=== PATIENT | male | born 1950 | race Caucasian/White ===

== ENCOUNTER 2016-07-12 14:55 | Outpatient (RCR) | payer BC ==
--- OUTSIDE RECORDS SUMMARY | 2016-05-30 15:33 | XMS REPORT | Continuity of Care Document ---
Author Author [facility] Organization [facility] Address Unknown Phone Unavailable Care Team Providers Care Check Airman Name Role Phone THANG MOMIN MD PCP Insurance Providers Payer Name Policy Number Subscriber Name Relationship Rust [id number] Maida Galindo 01 Advance Directives Directive Response Recorded Date/Time Advance Directives No 02/17/16 2:15pm Health Care Power of Long Haul Truck Driver No 02/17/16 2:15pm Organ Donor No 02/17/16 2:15pm Resuscitation Status Full Code 02/17/16 2:15pm Problems No problem information available. Medications Current Home Medications Medication Dose Units Route Directions Days/Qty Instructions Start Date Lisinopril 5 Mg 5 Mg Oral Daily 11/29/12 Vitamin E (Dl,Tocopheryl Acet) 1,000 Unit 1,000 Unit Oral Daily 12/08 Loratadine 10 Mg 10 Mg Oral Daily 11/29/12 Multivitamin 1 Each 1 Tab Oral Daily 11/29/12 Colchicine 0.6 Mg 0.6 Mg Oral Twice A Day 11/29/12 Tamsulosin Hcl 0.4 Mg 0.4 Mg Oral 30 Min After Supper 11/29/12 Past Home Medications Medication Directions Ordered Status Hyoscyamine Sulfate (Levbid) 0.375 Mg Tab.sr.12h, 0.375 Mg Oral Twice A Day 11/29/12 Discontinued Ciprofloxacin 500 Mg Tablet, 500 Mg Oral Twice A Day 11/29/12 Discontinued Ibuprofen 200 Mg Tablet, 400 Mg Oral Every Three Hours as needed 11/29/12 Discontinued Aspirin 325 Mg Tab, 325 Mg Ng Tube Once 11/29/12 Discontinued Loratadine/Pseudoephedrine Sul 1 Each Tab.sr.24h, 1 Each Oral Daily 01/02/13 Discontinued Social History Social History Problem Response Recorded Date/Time Alcohol Use Denies Use 02/17/2016 2:15pm Recreational Drug Use No 02/17/2016 2:15pm Recent Foreign Travel No 11/29/2012 1:00pm Recent Infectious Disease Exposure No 11/29/2012 1:00pm Hospitalization with Isolation Denies 01/04/2013 11:31am HIV/AIDS No 02/17/2016 2:15pm Smoking Status Current Everyday Smoker 02/17/2016 2:14pm Query Response Start Date Stop Date Smoking Status Current Everyday Smoker Hospital Discharge Instructions No hospital discharge instructions. Plan of Care Discharge Date 02/17/16 2:41pm Prescriptions See Medication Section Functional Status No functional status results. Allergies, Adverse Reactions, Alerts Allergen Type Severity Reaction Status Last Updated Penicillins ([id number]) Allergy Unknown Active 02/17/16 Immunizations Name Given Type Date of Pneumonia Vaccine 12/01/12 Historical Hepatitis A No Historical Hepatitis B No Historical Tetanus Booster (TDap) More than 5yrs Historical Vital Signs Acute Vital Signs Vital Response Date/Time Height (Feet) 5 feet 02/17/2016 2:15pm Height (Inches) 11.00 inches 02/17/2016 2:15pm Height (Calculated Centimeters) 180.262490 cm 02/17/2016 2:15pm Weight (Pounds) 160 pounds 02/17/2016 2:15pm Weight (Ounces) 0.0 oz 02/17/2016 2:15pm Weight (Calculated Grams) 99059.780 gm 02/17/2016 2:15pm Weight (Calculated Kilograms) 72.905414 kilograms 02/17/2016 2:15pm Calculated BMI 26.62 02/17/2016 2:15pm Results No known relevant diagnostic tests, laboratory data and/or discharge summary. Procedures No known history of procedures. Encounters Encounter Location Arrival/Admit Date Discharge/Depart Date Attending Provider Departed Clinic [facility] 02/17/16 2:08pm 02/17/16 2: 41pm NIRAV DOWLING MD
[~2016-07-12 14:55] MED LIST: ASP325T NG; CIPR-225 PO; COLC0.6T53 PO; CPR500T PO; HYDR-3729 PO; HYOS0.3710 PO; IBUP-30 PO; LISI5TAB PO; LORA-877 PO; LORA10TA2 PO; MULT-963 PO; TMSL.4C PO; VITA-198 PO
== END 2016-08-28 | disposition home or self-care (01) ==
LOC: ONC 14:55
PROVIDERS: ATTEND Internal Medicine Hematology & Oncology
DX: Z51.0 Encounter for antineoplastic radiation therapy (principal); C44.320 Squamous cell carcinoma of skin of unspecified parts of face
CPT/HCPCS: 77336; 77412; 99213

== ENCOUNTER → 2016-10-12 | Outpatient (CLI) | payer BC ==
--- OUTSIDE RECORDS SUMMARY | 2016-10-12 15:23 | XMS REPORT | Continuity of Care Document ---
Author Author [facility] Organization [facility] Address Unknown Phone Unavailable Care Team Providers Care History Tutor Name Role Phone THANG MOMIN MD PCP Insurance Providers Payer Name Policy Number Subscriber Name Relationship [facility] [id number] Maida Galindo 01 Advance Directives Directive Response Recorded Date/Time Advance Directives No 02/17/16 2:15pm Health Care Power of Agriculture Instructor No 02/17/16 2:15pm Organ Donor No 02/17/16 [...] Type Severity Reaction Status Last Updated Penicillins ([id number]) Allergy Unknown Active 02/17/16 Immunizations Name Given Type Date of Pneumonia Vaccine 12/01/12 Historical Hepatitis A No Historical Hepatitis B No Historical Tetanus Booster (TDap) More than 5yrs Historical Vital Signs Acute Vital Signs Vital Response Date/Time Height (Feet) 5 feet 02/17/2016 2:15pm Height (Inches) 11.00 inches 02/17/2016 2:15pm Height (Calculated Centimeters) 180.166247 cm 02/17/2016 2:15pm Weight (Pounds) 160 pounds 02/17/2016 2:15pm Weight (Ounces) 0.0 oz 02/17/2016 2:15pm Weight (Calculated Grams) 99776.780 gm 02/17/2016 2:15pm Weight (Calculated Kilograms) 72.913807 kilograms 02/17/2016 2:15pm Calculated BMI 26.62 02/17/2016 2:15pm Results No known relevant diagnostic tests, laboratory data and/or discharge summary. Procedures No known history of procedures. Encounters Encounter Location Arrival/Admit Date Discharge/Depart Date Attending Provider Departed Clinic [facility] 02/17/16 2:08pm 02/17/16 2: 41pm NIRAV DOWLING MD
== END ==
LOC: EDSTATUS 08-29 15:05 → ONC 15:16
PROVIDERS: ATTEND Internal Medicine Hematology & Oncology
DX: C44.320 Squamous cell carcinoma of skin of unspecified parts of face (principal)
CPT/HCPCS: 99213

== ENCOUNTER → 2017-01-11 | Outpatient (CLI) | payer BC | LOC: ONC 15:29 | PROVIDERS: ATTEND Radiology Radiation Oncology | DX: C44.320 Squamous cell carcinoma of skin of unspecified parts of face (principal) ==

== ENCOUNTER 2017-04-12 15:11 | Outpatient (RCR) | payer BC | END 2017-05-27 | disposition home or self-care (01) | LOC: ONC 15:11 | PROVIDERS: ATTEND Radiology Radiation Oncology | DX: C44.329 Squamous cell carcinoma of skin of other parts of face (principal) ==

== ENCOUNTER 2017-10-13 09:32 | Outpatient (RCR) | payer BC | END 2018-01-11 | disposition home or self-care (01) | LOC: ONC 09:32 | PROVIDERS: ATTEND Radiology Radiation Oncology | DX: C44.329 Squamous cell carcinoma of skin of other parts of face (principal) | CPT/HCPCS: 99213 ==

== ENCOUNTER 2018-06-12 06:40 | Outpatient (CLI) | payer MEDICARE ==
[~2018-06-12] VITALS: Ht 180.3 cm; Wt 73.0 kg
[2018-06-12] MEDS ORDERED: MULT-1056 PO (15:37)
[2018-06-12] MEDS ORDERED: CETI-343 PO (15:37)
[2018-06-12] MEDS ORDERED: PENT400T9 PO (15:37)
[2018-06-12] MEDS ORDERED: VITA-244 PO (15:37)
[2018-06-12] MEDS ORDERED: LISI-556 PO (15:37)
[2018-06-12] MEDS ORDERED: TAMS0.4C2 PO (15:37)
== END 2018-06-12 15:47 | disposition home or self-care (01) ==
LOC: PREOP 06:40
PROVIDERS: ATTEND Internal Medicine
DX: Z01.818 Encounter for other preprocedural examination (principal)

== ENCOUNTER 2018-06-15 07:38 | Day surgery (SDC) | payer MEDICARE, OTHER ==
--- NOTE | 2018-06-11 20:11 | HISTORY AND PHYSICAL ---
DATE OF SERVICE: COLONOSCOPY HISTORY AND PHYSICAL HISTORY OF PRESENT ILLNESS: The patient is a 67-year-old white male seen for yearly evaluation of hypertension. He is due for a screening colonoscopy. He reports that he has felt well and voiced no complaints. He has noted no bowel habit change, has noted no bright red blood per rectum, melena and denies abdominal pain. He remains physically active and continues to smoke a half a pack of cigarettes, which he has done so for a little over 40 years. 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 PAST MEDICAL HISTORY: Significant for hypertension and a distant past history of kidney stones requiring basketing per Dr. Pan over 5 years ago. He has no known history of vascular disease or pulmonary disease. 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 He underwent initial excision in 2016. Margins were positive. He subsequently underwent radiation therapy and there has been no evidence for recurrence. He has no other history of known malignancy. MEDICATIONS ON ADMISSION: Include lisinopril 5 mg daily and loratadine 10 mg daily that he takes for seasonal allergies. PAST SURGICAL HISTORY: Significant for the aforementioned skin excision and stone basketing. He has had no other surgeries. SOCIAL HISTORY: He has a 20 plus pack year smoking with no significant alcohol. FAMILY HISTORY: His father late in life was diagnosed with colon cancer. He is still living at the age of 95. Mother of lung cancer and was a smoker in her 70s. He has sister with diabetes in her 60s and a brother in his 60s in good health with no other known family history for colon cancer. He last underwent colonoscopy five and a half years ago at which time two small tubular adenomas were removed. PHYSICAL EXAMINATION: GENERAL: Reveals a well-appearing, normal weight white male in no acute distress. VITAL SIGNS: Weight was up three pounds from one year ago at 161.4. He is 5 feet 8 inches tall. Blood pressure is 110/70. HEENT: Unremarkable. He has a Mallampati class 2 oropharyngeal configuration. There are some post radiation changes to the right gnosticist. No evidence for cancer recurrence is noted. SKIN: No suspicious nevi are noted. NECK: Revealed no JVD, adenopathy or bruits. CHEST: Clear to auscultation. CARDIOVASCULAR: Reveals a regular rate and rhythm without murmur, S3 or S4. ABDOMEN: Soft, supple without mass, organomegaly or tenderness. RECTAL: Deferred at the time of colonoscopy. EXTREMITIES: Reveal no cyanosis, clubbing or edema. Because of the patient's smoking history, he subsequently underwent office based pulmonary function testing, which was normal. A flu shot was given. ASSESSMENT AND PLAN: 1. Hypertension, under good control. 2. Family history for colon cancer, index case being his father later in life with a past history of colon polyps. The patient is due for screening colonoscopy being set up later this month. 3. Tobaccoism. Discussed all the other potential risks. Even though the patient does not have COPD, the patient was strongly advised to quit smoking. 4. Seborrheic keratosis on his back. The patient reassured no suspicious nevi noted. We will have the patient continue to follow up for yearly skin evaluation and hypertension check. Blood test including chemistry panel, lipid panel and PSA were obtained. LDL cholesterol was mildly elevated at 157, but HDL is high, especially considering smoking status of 55. The remainder of his chemistry panel was normal and his PSA remains low at 0.81. Job ID: [id number] DocumentID: [id number] Dictated Date: 06/08/2018 10:20:11 Chipper Machine Operator Date: 06/08/2018 11:04:38 Dictated By: KADEEM LAGUNAS MD MTDD
[~2018-06-15] VITALS: Ht 180.3 cm; Wt 73.0 kg
[~2018-06-15 07:38] MED LIST changes: +CETI-343 PO; +LISI-556 PO; +MULT-1056 PO; +PENT400T9 PO; +TAMS0.4C2 PO; +VITA-244 PO
--- OUTSIDE RECORDS SUMMARY | 2018-06-15 07:43 | XMS REPORT | Continuity of Care Document ---
Author Author [facility] Organization [facility] Address Unknown Phone Unavailable Allergies Active Description Code Type Severity Reaction Onset Reported/Identified Relationship to Patient Clinical Status Yes Penicillins [id number] Drug Allergy Unknown N/A 02/17/2016 Medications There is no data. Problems Date Dx Coded Attending Type Code Diagnosis Diagnosed By 12/01/2012 Ot 562.10 DIVERTICULOSIS COLON (W/O MENT OF HEMORR 12/01/2012 Ot 564.00 UNSPEC CONSTIPATION 12/01/2012 Ot 592.1 CALCULUS OF URETER 12/01/2012 Ot 600.00 HYPERTROPHY (BENIGN) OF PROSTATE W/O URI 12/01/2012 Ot V03.82 PROPHYLACTIC VACC AGAINST STREPTOCOCCUS 01/04/2013 KADEEM LAGUNAS MD Ot 211.3 BENIGN NEOPLASM LG BOWEL 01/04/2013 KADEEM LAGUNAS MD Ot 562.10 DIVERTICULOSIS COLON (W/O MENT OF HEMORR 01/04/2013 KADEEM LAGUNAS MD Ot V16.0 FAMILY HX-GI MALIGNANCY 01/04/2013 KADEEM LAGUNAS MD Ot V76.51 SCREEN MAL NEOP-COLON 02/17/2016 KADEEM LAGUNAS MD Ot V72.84 EXAM PRE-OPERATIVE NOS 02/17/2016 THANG MOMIN MD Ot 786.2 COUGH 02/17/2016 KADEEM LAGUNAS MD Ot V72.84 EXAM PRE-OPERATIVE NOS 02/17/2016 THANG MOMIN MD Ot 786.2 COUGH 02/17/2016 NIRAV DOWLING MD Ot L98.9 DISORDER OF THE SKIN AND SUBCUTANEOUS TI 02/17/2016 NIRAV DOWLING MD Ot Z01.818 ENCOUNTER FOR OTHER PREPROCEDURAL EXAMIN 02/18/2016 NIRAV DOWLING MD Ot L98.9 DISORDER OF THE SKIN AND SUBCUTANEOUS TI 02/18/2016 NIRAV DOWLING MD Ot Z01.818 ENCOUNTER FOR OTHER PREPROCEDURAL EXAMIN 02/18/2016 KADEEM LAGUNAS MD, Ot V72.84 EXAM PRE-OPERATIVE NOS 02/18/2016 THANG MOMIN MD Ot 786.2 COUGH 02/18/2016 NIRAV DOWLING MD, Ot C44.320 SQUAMOUS CELL CARCINOMA OF SKIN OF UNSPE 02/18/2016 NIRAV DOWLING MD Ot D04.39 CARCINOMA IN SITU OF SKIN OF OTHER PARTS 02/18/2016 NIRAV DOWLING MD Ot L98.9 DISORDER OF THE SKIN AND SUBCUTANEOUS TI 02/19/2016 NIRAV DOWLING MD Ot L98.9 DISORDER OF THE SKIN AND SUBCUTANEOUS TI 02/19/2016 NIRAV DOWLING MD Ot Z01.818 ENCOUNTER FOR OTHER PREPROCEDURAL EXAMIN 04/13/2016 KADEEM LAGUNAS MD Ot V72.84 EXAM PRE-OPERATIVE NOS 04/13/2016 THANG MOMIN MD Ot 786.2 COUGH 04/19/2016 KADEEM LAGUNAS MD, Ot V72.84 EXAM PRE-OPERATIVE NOS 04/19/2016 THANG MOMIN MD Ot 786.2 COUGH 04/25/2016 BOBBY STOUT Ot C44.320 SQUAMOUS CELL CARCINOMA OF SKIN OF UNSPE 05/30/2016 BOBBY STOUT Ot C44.320 SQUAMOUS CELL CARCINOMA OF SKIN OF UNSPE 05/30/2016 BOBBY STOUT Ot Z51.0 ENCOUNTER FOR ANTINEOPLASTIC RADIATION T 05/31/2016 BOBBY STOUT Ot C44.320 SQUAMOUS CELL CARCINOMA OF SKIN OF UNSPE 07/07/2016 BOBBY STOUT Ot C44.320 SQUAMOUS CELL CARCINOMA OF SKIN OF UNSPE 08/28/2016 BOBBY STOUT Ot C44.320 SQUAMOUS CELL CARCINOMA OF SKIN OF UNSPE 08/28/2016 BOBBY STOUT Ot Z51.0 ENCOUNTER FOR ANTINEOPLASTIC RADIATION T 08/29/2016 BOBBY STOUT Ot C44.320 SQUAMOUS CELL CARCINOMA OF SKIN OF UNSPE 08/29/2016 BOBBY STOUT Ot Z51.0 ENCOUNTER FOR ANTINEOPLASTIC RADIATION T 10/12/2016 BOBBY STOUT Ot C44.320 SQUAMOUS CELL CARCINOMA OF SKIN OF UNSPE 10/12/2016 BOBBY STOUT Ot C44.320 SQUAMOUS CELL CARCINOMA OF SKIN OF UNSPE 10/12/2016 BOBBY STOUT Ot C44.320 SQUAMOUS CELL CARCINOMA OF SKIN OF UNSPE 10/26/2016 BOBBY STOUT Ot C44.320 SQUAMOUS CELL CARCINOMA OF SKIN OF UNSPE 01/12/2017 WHITNEY GUPTA MD Ot C44.320 SQUAMOUS CELL CARCINOMA OF SKIN OF UNSPE 01/15/2017 WHITNEY GUPTA MD Ot C44.320 SQUAMOUS CELL CARCINOMA OF SKIN OF UNSPE 01/15/2017 WHITNEY GUPTA MD Ot C44.320 SQUAMOUS CELL CARCINOMA OF SKIN OF UNSPE 01/15/2017 WHITNEY GUPTA MD Ot C44.320 SQUAMOUS CELL CARCINOMA OF SKIN OF UNSPE 01/25/2017 WHITNEY GUPTA MD Ot C44.320 SQUAMOUS CELL CARCINOMA OF SKIN OF UNSPE 04/13/2017 WHITNEY GUPTA MD Ot C44.320 SQUAMOUS CELL CARCINOMA OF SKIN OF UNSPE 05/27/2017 WHITNEY GUPTA MD Ot C44.329 SQUAMOUS CELL CARCINOMA OF SKIN OF OTHER 10/06/2017 BEBO SALAZAR, KADEEM Ocampo Ot V72.84 EXAM PRE-OPERATIVE NOS 10/06/2017 THANG MOMIN MD Ot 786.2 COUGH 10/06/2017 BOBBY STOUT Ot C44.320 SQUAMOUS CELL CARCINOMA OF SKIN OF UNSPE 10/06/2017 WHITNEY GUPTA MD Ot C44.320 SQUAMOUS CELL CARCINOMA OF SKIN OF UNSPE 10/06/2017 WHITNEY GUPTA MD Ot C44.329 SQUAMOUS CELL CARCINOMA OF SKIN OF OTHER 10/12/2017 BOBBY STOUT Ot C44.320 SQUAMOUS CELL CARCINOMA OF SKIN OF UNSPE 10/12/2017 WHITNEY GUPTA MD Ot C44.320 SQUAMOUS CELL CARCINOMA OF SKIN OF UNSPE 10/12/2017 WHITNEY GUPTA MD Ot C44.329 SQUAMOUS CELL CARCINOMA OF SKIN OF OTHER 10/13/2017 BOBBY STOUT Ot C44.320 SQUAMOUS CELL CARCINOMA OF SKIN OF UNSPE 10/13/2017 WHITNEY GUPTA MD Ot C44.320 SQUAMOUS CELL CARCINOMA OF SKIN OF UNSPE 10/13/2017 BOBBY STOUT Ot C44.320 SQUAMOUS CELL CARCINOMA OF SKIN OF UNSPE 10/13/2017 WHITNEY GUPTA MD Ot C44.320 SQUAMOUS CELL CARCINOMA OF SKIN OF UNSPE 11/15/2017 WHITNEY GUPTA MD Ot C44.329 SQUAMOUS CELL CARCINOMA OF SKIN OF OTHER 01/11/2018 WHITNEY GUPTA MD Ot C44.329 SQUAMOUS CELL CARCINOMA OF SKIN OF OTHER 01/12/2018 WHITNEY GUPTA MD Ot C44.329 SQUAMOUS CELL CARCINOMA OF SKIN OF OTHER 06/11/2018 BOBBY STOUT Ot C44.320 SQUAMOUS CELL CARCINOMA OF SKIN OF UNSPE 06/11/2018 WHITNEY GUPTA MD Ot C44.320 SQUAMOUS CELL CARCINOMA OF SKIN OF UNSPE 06/11/2018 WHITNEY GUPTA MD Ot C44.329 SQUAMOUS CELL CARCINOMA OF SKIN OF OTHER Procedures Code Description Performed By Performed On 56.0 TU REMOV URETER OBSTRUCT 11/30/2012 Results There is no data. Encounters ACCT No. Visit Date/Time Discharge Status Pt. Type Provider Facility Loc./Unit Complaint [id number] 06/12/2018 06:40:00 06/12/2018 15:47:00 DIS Outpatient KADEEM LAGUNAS MD [facility] PREOP COLONOSCOPY [id number] 01/12/2018 00:08:00 01/12/2018 23:59:59 CLS Preadmit WHITNEY GUPTA MD [facility] ONC [id number] 10/13/2017 09:32:00 01/11/2018 00:01:00 DIS Outpatient WHITNEY GUPTA MD [facility] ONC [id number] 04/12/2017 15:11:00 05/27/2017 00:01:00 DIS Outpatient WHITNEY GUPTA MD [facility] ONC [id number] 01/11/2017 15:29:00 01/11/2017 23:59:59 CLS Outpatient WHITNEY GUPTA MD [facility] ONC [id number] 10/12/2016 15:16:00 10/12/2016 23:59:59 CLS Outpatient BOBBY STOUT [facility] ONC [id number] 07/12/2016 14:55:00 08/28/2016 00:01:00 DIS Outpatient BOBBY STOUT [facility] ONC [id number] 05/26/2016 15:41:00 05/30/2016 09:26:00 DIS Outpatient BOBBY STOUT [facility] ONC [id number] 02/18/2016 10:59:00 02/18/2016 17:40:00 DIS Outpatient NRIAV DOWLING MD [facility] RT CHRISTIAN LESION,LT BELOW EAR LESION [id number] 02/17/2016 14:08:00 02/17/2016 14:41:00 DIS Outpatient NIRAV DOWLING MD [facility] PREOP RT CHRISTIAN LESION,LEFT BELOW EAR LESION [id number] 05/12/2014 12:22:00 05/12/2014 23:59:59 CLS Outpatient LILIANE SALAZAR, THANG Ro [facility] RAD COUGH/SPUTUM [id number] 01/04/2013 07:30:00 01/04/2013 10:45:00 DIS Outpatient KADEEM LAGUNAS MD [facility] SCREENING,DIVERTICULOSIS [id number] 01/02/2013 08:29:00 01/02/2013 23:59:59 CLS Outpatient KADEEM LAGUNAS MD [facility] PREOP SCREENING [id number] 06/15/2018 08:45:00 PEN Preadmit KADEEM LAGUNAS MD [facility] ENDO SCREENING, FAMILY HX COLON CANCER [id number] 11/29/2012 12:05:00 Document Registration
--- OUTSIDE RECORDS SUMMARY | 2018-06-15 07:43 | XMS REPORT | Continuity of Care Document ---
Author Author [facility] Organization [facility] Address Unknown Phone Unavailable Care Team Providers Care Campaign Director Name Role Phone THANG MOMIN MD PP Insurance Providers Payer Name Policy Number Subscriber Name Relationship [facility] [id number] Maida Reaves 02 Advance Directives Directive Response Recorded Date Advance Directives N 01/04/13 8:11am Health Care Power of Senior Ios Developer N 01/04/13 8:11am Organ Donor N 01/04/13 8:11am Problems No Known Problems or Medical conditions. Family History History Response Recorded Date/Time Hx Family Lung Cancer Y MOTHER 11/29/12 8 :21pm Hx Family Colorectal Cancer Y FATHER 12/08 8:21pm Social History History Response Recorded Date/Time Alcohol Use Denies Use 11/29/12 1:00pm Recreational Drug Use N 11/29/12 1:00pm Recent Foreign Travel N 11/29/12 1:00pm Recent Infectious Disease Exposure N 12/08 1:00pm Hospitalization with Isolation Denies 06/09 11:31am Allergies, Adverse Reactions, Alerts Allergen Type Severity Reaction Last Updated Penicillins Allergy 11/29/12 Medications Medication Dose Units Route Sig Qty Days Loratadine/Pseudoephedrine Sul (Claritin-D 24 Hour Tablet) 1 Each PO DAILY Hyoscyamine Sulfate (Hyoscyamine Er 0.375 Mg) 0.375 Mg PO BID Tamsulosin HCl (Flomax) 0.4 Mg PO 30 MIN AFTER SUPPER Colchicine (Colcrys) 0.6 Mg PO BID Multivitamin (Multi-Vitamin Daily) 1 Tab PO DAILY Loratadine 10 Mg PO DAILY Vitamin E (Dl,Tocopheryl Acet) (Vitamin E) 1000 Unit PO DAILY Lisinopril (Prinivil) 5 Mg PO DAILY Ciprofloxacin (Cipro) 500 Mg PO BID Aspirin (Aspirin 325 Mg Tab) 325 Mg NG ONCE Ibuprofen (Advil) 400 Mg PO EVERY THREE HOURS PRN Immunizations Name Given Type Date of Pneumonia Vaccine 12/01/12 H pneumococcal polysaccharide PPV23 12/01/12 A Response Recorded Date/Time Status not known Unknown Results Test Date Result Interp. Ref. Range Alanine Aminotransferase (ALT/SGPT) November 29, 2012 1:52pm 32 U/L N 30-65 Albumin November 29, 2012 1:52pm 3.3 G/DL L 3.4-5.0 Alkaline Phosphatase November 29, 2012 1:52pm 114 U/L N 50-136 Aspartate Amino Transf (AST/SGOT) November 29, 2012 1:52pm 18 U/L N 15-37 BUN/Creatinine Ratio December 01, 2012 7:22am 9 - Basophils # (Auto) November 30, 2012 6:50am 0.0 10^3/uL N 0.0-0.1 Basophils (%) (Auto) November 30, 2012 6:50am 1 % N 0-10 Blood Urea Nitrogen December 01, 2012 7:22am 11 MG/DL N 7-18 Calcium Level December 01, 2012 7:22am 8.6 MG/DL N 8.5-10.1 Carbon Dioxide Level December 01, 2012 7:22am 30 MMOL/L N 21-32 Chloride Level December 01, 2012 7:22am 102 MMOL/L N 101-110 Creatinine December 01, 2012 7:22am 1.2 MG/ DL N 0.6-1.3 Eosinophils # (Auto) November 30, 2012 6:50am 0.2 10^3/uL N 0.0-0.3 Eosinophils (%) (Auto) November 30, 2012 6:50am 3 % N 0-10 Glucose Level December 01, 2012 7:22am 97 MG/DL N 74-106 Hematocrit December 01, 2012 7:22am 39 % L 40-54 Hemoglobin December 01, 2012 7:22am 12.9 G/ DL L 13.3-17.7 Lymphocytes # (Auto) November 30, 2012 6:50am 1.1 X 10^3 N 1.0-4.0 Lymphocytes (%) (Auto) November 30, 2012 6:50am 19 % N 12-44 Mean Corpuscular Hemoglobin December 01, 2012 7:22am 32 PG N 25-34 Mean Corpuscular Hemoglobin Concent December 01, 2012 7:22am 34 G/DL N 32-36 Mean Corpuscular Volume December 01, 2012 7:22am 94 FL N 80-99 Mean Platelet Volume December 01, 2012 7:22am 11.8 FL H 7.4-10.4 Monocytes # (Auto) November 30, 2012 6:50am 0.9 X 10^3 N 0.0-1.0 Monocytes (%) (Auto) November 30, 2012 6:50am 14 % H 0-12 Neutrophils # (Auto) November 30, 2012 6:50am 3.9 X 10^3 N 1.8-7.8 Neutrophils (%) (Auto) November 30, 2012 6:50am 64 % N 42-75 Platelet Count December 01, 2012 7:22am 221 10^3/uL N 130-400 Potassium Level December 01, 2012 7:22am 3.7 MMOL/L N 3.6-5.0 Red Blood Count December 01, 2012 7:22am 4.08 10^6/uL L 4.35-5.85 Red Cell Distribution Width December 01, 2012 7:22am 12.6 % N 10.0-14.5 Sodium Level December 01, 2012 7:22am 137 MMOL/L N 135-145 Total Bilirubin November 29, 2012 1:52pm 0.5 MG/DL N 0.0-1.0 Total Protein November 29, 2012 1:52pm 7.1 G/DL N 6.4-8.2 White Blood Count December 01, 2012 7:22am 6.3 10^3/uL N 4.3-11.0 Lab Scanned Report November 29, 2012 12:05pm LAB Reports [id number] - Procedures Procedure Code Date DIAGNOSTIC COLONOSCOPY [id number] 04/13/06 TU REMOV URETER OBSTRUCT 56.0 11/30/12 LESION REMOVE COLONOSCOPY [id number] 01/04/13 MRSA Screen 11/30/12 Encounters Encounter Location Date/Time Discharged Inpatient [facility] 12:05pm
[2018-06-15] MEDS ORDERED: D5 LR IV SOLUTION 1,000 ML IV ONE (07:44)
[2018-06-15] MEDS ORDERED: D5 LR IV SOLUTION 1,000 ML IV STA (08:10)
[2018-06-15 08:12] VITALS: BP 127/83
[2018-06-15] MEDS ORDERED: MIDAZOLAM 2 MG/2 ML (VERSED) VIAL IVP ONE (08:15)
[2018-06-15] MEDS ORDERED: LIDOCAINE JELLY 2% 6 ML SYRINGE MM PRN (08:15)
[2018-06-15] MEDS ORDERED: fentaNYL INJECTION 100 MCG/2 ML AMP IVP ONE (08:15)
[2018-06-15] MEDS ORDERED: LIDOCAINE JELLY 2% 6 ML SYRINGE ONE (08:16)
[2018-06-15] MEDS ORDERED: fentaNYL INJECTION 100 MCG/2 ML AMP ONE (08:16)
[2018-06-15] MEDS ORDERED: MIDAZOLAM 2 MG/2 ML (VERSED) VIAL ONE ×2 (08:16)
--- NOTE | 2018-06-15 09:13 | Pre-Op Note & Conscious Sedat ---
Pre-Operative Progress Note H&P Reviewed The H&P was reviewed, patient examined and no changes noted. Date H&P Reviewed: Jun 15, 2018 Time H&P Reviewed: 08:00 Conscious Sedation Pre-Proced ASA Score 2 For ASA 3 and 4: Consider anesthesia and medical clearance. Also, for patients with a history of failed moderate sedation consider anesthesia. Airway Lungs Heart ASA score ASA 1: a normal healthy patient ASA 2: a patient with a mild systemic disease (mid diabetes, controlled hypertension, obesity ASA 3: a patient with a severe systemic disease that limits activity (angina , COPD, prior Myocardial infarction) ASA 4: a patient with an incapacitating disease that is a constant threat to life (CHF, renal failure) ASA 5: a moribund patient not expected to survive 24 hrs. (ruptured aneurysm) ASA 6: a declared brain patient whose organs are being harvested. For emergent operations, add the letter E after the classification Mallampati Classification Grade 2 Sedation Plan Analgesia, Amnesia, Plan communicated to team members, Discussed options with patient/fam, Discussed risks with patient/fam The patient is an appropriate candidate to undergo the planned procedure, sedation, and anesthesia. The patient immediately re-assessed prior to indication. KADEEM LAGUNAS MD Jun 15, 2018 09:13
[2018-06-15 09:15] VITALS: BP 131/89
[2018-06-15 09:45] VITALS: BP 119/82
[2018-06-15 09:55] VITALS: BP 119/82
--- NOTE | 2018-06-15 18:47 | OPERATIVE REPORT ---
DATE OF SERVICE: COLONOSCOPY SUMMARY INDICATION FOR THE PROCEDURE: Screening colonoscopy with family history for colon cancer in this case being his father diagnosed in his 60s. The patient was placed in the left lateral decubitus position. Prior to doing colonoscopy, digital rectal evaluation was performed. Anal sphincter tone was normal and the perianal reflexes intact. Prostate is mildly enlarged, anodular and nontender to digital inspection. No other abnormalities on additional inspection of the anal canal or distal rectal vault. The colonoscope was then inserted into the rectum under direct visualization advanced to the cecum. The cecum was identified by identification of the ileocecal valve and cecal strap. Photographic documentation was obtained. Careful inspection was made as the colonoscope was withdrawn. FINDINGS: There is no evidence for internal or external hemorrhoids. The rectum was unremarkable. Present in the mid sigmoid colon and present throughout the colon were multiple medium to large diverticulum with several fecalith noted in the sigmoid colon. There was no evidence to suggest acute diverticulitis. One diminutive polyp was noted in the mid sigmoid colon. A similar polyp noted in the mid transverse colon. Both were biopsied and ablated and submitted for histopathology. Other than this and diverticular disease, no other abnormalities were noted on colonoscopy to the cecum. ASSESSMENT: 1. Two diminutive polyps were removed today. As long as there is no surprise on histopathology report considering family history, we will advocate repeat screening colonoscopy in 5 years. 2. Moderate severe diverticular disease was present beginning in the mid sigmoid colon and well most prevalence in the left colon; diverticulum were present throughout the entire colon. Digital rectal evaluation of the prostate was compatible with mild benign prostatic hypertrophy with no nodularity or tenderness. Job ID: [id number] DocumentID: [id number] Dictated Date: 06/15/2018 11:12:03 Plaster Maker Date: 06/15/2018 18:46:26 Dictated By: KADEEM LAGUNAS MD MTDD
== END 2018-06-15 09:55 | disposition home or self-care (01) ==
LOC: ENDO 07:38
PROVIDERS: ATTEND Internal Medicine
DX: Z12.11 Encounter for screening for malignant neoplasm of colon (principal); D12.3 Benign neoplasm of transverse colon; K63.5 Polyp of colon; K57.30 Diverticulosis of large intestine without perforation or abscess without bleeding; N40.0 Benign prostatic hyperplasia without lower urinary tract symptoms; I10 Essential (primary) hypertension; Z79.899 Other long term (current) drug therapy; Z80.0 Family history of malignant neoplasm of digestive organs
CPT/HCPCS: 88305

== ENCOUNTER → 2018-11-07 | Outpatient (CLI) | payer MEDICARE, OTHER ==
[~2018-11-07] MED LIST changes: -CETI-343 PO; +CETI10TA4 PO
[2018-11-07 11:03] LABS: BASOPHILS % (AUTO) 0 % (0-10); EOSINOPHILS # (AUTO) 0.2 10^3/uL (0.0-0.3); EOSINOPHILS % (AUTO) 3 % (0-10); HEMATOCRIT 44 % (40-54); HEMOGLOBIN 15.2 G/DL (13.3-17.7); LYMPHOCYTES # (AUTO) 1.3 X 10^3 (1.0-4.0); LYMPHOCYTES % (AUTO) 19 % (12-44); MEAN CORPUSCULAR HEMOGLOBIN 33 PG (25-34); MEAN CORPUSCULAR HGB CONC 34 G/DL (32-36); MEAN CORPUSCULAR VOLUME 95 FL (80-99); MEAN PLATELET VOLUME 11.6 FL (7.4-10.4); MONOCYTES # (AUTO) 0.7 X 10^3 (0.0-1.0); MONOCYTES % (AUTO) 10 % (0-12); NEUTROPHILS # (AUTO) 4.6 X 10^3 (1.8-7.8); NEUTROPHILS % (AUTO) 69 % (42-75); PLATELET COUNT 223 10^3/uL (130-400); RED CELL DISTRIBUTION WIDTH 13.5 % (10.0-14.5); WHITE BLOOD COUNT 6.8 10^3/uL (4.3-11.0)
[2018-11-07 11:28] LABS: ERYTHROCYTE SEDIMENTATION RATE 5 MM/HR (0-30)
== END ==
LOC: LAB 10:49
PROVIDERS: ATTEND Internal Medicine
DX: R19.7 Diarrhea, unspecified (principal); R10.32 Left lower quadrant pain
CPT/HCPCS: 36415; 85025; 85652; 87324; 87449

== ENCOUNTER 2019-03-06 05:36 | Outpatient (CLI) | payer MEDICARE, OTHER ==
[~2019-03-06] VITALS: Ht 177.8 cm; Wt 65.8 kg
[2019-03-06] MEDS ORDERED: TAMS0.4C98 PO (12:56)
== END 2019-03-06 13:09 | disposition home or self-care (01) ==
LOC: PREOP 05:36
PROVIDERS: ATTEND Specialist
DX: Z01.818 Encounter for other preprocedural examination (principal)

== ENCOUNTER 2019-03-08 06:43 | Day surgery (SDC) | payer MEDICARE, OTHER ==
[~2019-03-08] VITALS: Ht 177.8 cm; Wt 65.8 kg
[~2019-03-08 06:43] MED LIST changes: +TAMS0.4C98 PO
[2019-03-08 07:00] VITALS: BP 130/85
[2019-03-08] MEDS: TETRACAINE 0.5% OPHTH SOLN 4 ML BTL (SINGLE DOSE ONLY) OU PRN ×4 (07:02→07:17)
[2019-03-08] MEDS: PHENYLEPHRINE 10% OPHTH (NEO-SYN) 5 ML BTL OU PRN ×3 (07:07→07:17)
[2019-03-08] MEDS: TROPICAMIDE 1% OPH SOLN (MYDRIACYL) 15 ML BTL OU PRN ×3 (07:07→07:17)
--- NOTE | 2019-03-08 07:28 | Ophthalmologist Pre-Op Note ---
Pre-Operative Progress Note H&P Reviewed The H&P was reviewed, patient examined and no changes noted. Date H&P Reviewed: Mar 08, 2019 Time H&P Reviewed: 07:28 Pre-Op Dx Secondary Cataract, Right Eye ADRI SADLER MD Mar 08, 2019 07:28
--- NOTE | 2019-03-08 07:59 | Ophthalmology Operative Report ---
YAG Capsulotomy PREOPERATIVE DIAGNOSIS: Secondary Cataract Right Eye POSTOPERATIVE DIAGNOSIS: Secondary Cataract Right Eye PROCEDURE: YAG Capsulotomy, right eye SURGEON: Manav Sadler ANESTHESIA: Topical anesthesia COMPLICATIONS: None ESTIMATED BLOOD LOSS: Minimal DESCRIPTION OF PROCEDURE: After proper informed consent was obtained, the patient's, a 68 male, right eye received one drop of Tropicamide and one drop of Tetracaine. The patient was then placed at the YAG laser and using a power of [4.0 ] millijoules and [ 17] bursts were used to fashion a central capsulotomy. The patient tolerated the procedure well without complications. MANAV SADLER MD Mar 08, 2019 07:59
[2019-03-08 08:00] VITALS: BP 130/85
--- OUTSIDE RECORDS SUMMARY | 2019-03-08 08:26 | XMS REPORT | Continuity of Care Document ---
Author Organization Unknown Address Unknown Allergies Active Description Code Type Severity Reaction Onset Reported/Identified Relationship to Patient Clinical Status Yes Penicillins [id number] Drug Allergy Unknown N/A 02/17/2016 Yes Penicillins [id number] Drug Allergy Unknown FROM CHILDHOOD 03/06/2019 Medications There is no data. Problems Date [...] FOR OTHER PREPROCEDURAL EXAMIN 02/18/2016 KADEEM LAGUNAS MD Ot V72.84 EXAM PRE-OPERATIVE NOS 02/18/2016 THANG [...] MD Ot 786.2 COUGH 04/19/2016 KADEEM LAGUNAS MD Ot V72.84 EXAM PRE-OPERATIVE NOS 04/19/2016 THANG [...] Ocampo Ot V72.84 EXAM PRE-OPERATIVE NOS 10/06/2017 LILIANE SALAZAR, THANG Ro Ot 786.2 COUGH 10/06/2017 BOBBY STOUT Ot [...] CELL CARCINOMA OF SKIN OF OTHER 01/11/2018 ALONSO SALAZAR, WHITNEY Young Ot C44.329 SQUAMOUS CELL CARCINOMA OF SKIN OF OTHER 01/12/2018 WHITNEY GUPTA MD Ot C44.329 SQUAMOUS CELL CARCINOMA OF SKIN OF OTHER 06/11/2018 BOBBY STOUT Ronak Ot C44.320 SQUAMOUS CELL CARCINOMA OF SKIN OF UNSPE 06/11/2018 WHITNEY GUPTA MD Ot C44.320 SQUAMOUS CELL CARCINOMA OF SKIN OF UNSPE 06/11/2018 WHITNEY GUPTA MD Ot C44.329 SQUAMOUS CELL CARCINOMA OF SKIN OF OTHER 06/12/2018 KADEEM LAGUNAS MD Ot Z01.818 ENCOUNTER FOR OTHER PREPROCEDURAL EXAMIN 06/15/2018 KADEEM LAGUNAS MD Ot D12.3 BENIGN NEOPLASM OF TRANSVERSE COLON 06/15/2018 KADEEM LAGUNAS MD Ot I10 ESSENTIAL (PRIMARY) HYPERTENSION 06/15/2018 KADEEM LAGUNAS MD Ot K57.30 DVRTCLOS OF LG INT W/O PERFORATION OR AB 06/15/2018 KADEEM LAGUNAS MD Ot K63.5 POLYP OF COLON 06/15/2018 KADEEM LAGUNAS MD Ot N40.0 BENIGN PROSTATIC HYPERPLASIA WITHOUT LOW 06/15/2018 KADEEM LAGUNAS MD Ot Z12.11 ENCOUNTER FOR SCREENING FOR MALIGNANT NE 06/15/2018 KADEEM LAGUNAS MD Ot Z79.899 OTHER [facility] (CURRENT) DRUG THERAPY 06/15/2018 KADEEM LAGUNAS MD Ot Z80.0 FAMILY HISTORY OF MALIGNANT NEOPLASM OF 06/19/2018 KADEEM LAGUNAS MD Ot D12.3 BENIGN NEOPLASM OF TRANSVERSE COLON 06/19/2018 KADEEM LAGUNAS MD Ot I10 ESSENTIAL (PRIMARY) HYPERTENSION 06/19/2018 KADEEM LAGUNAS MD Ot K57.30 DVRTCLOS OF LG INT W/O PERFORATION OR AB 06/19/2018 KADEEM LAGUNAS MD Ot K63.5 POLYP OF COLON 06/19/2018 KADEEM LAGUNAS MD Ot N40.0 BENIGN PROSTATIC HYPERPLASIA WITHOUT LOW 06/19/2018 KADEEM LAGUNAS MD Ot Z12.11 ENCOUNTER FOR SCREENING FOR MALIGNANT NE 06/19/2018 KADEEM LAGUNAS MD Ot Z79.899 OTHER [facility] (CURRENT) DRUG THERAPY 06/19/2018 KADEEM LAGUNAS MD Ot Z80.0 FAMILY HISTORY OF MALIGNANT NEOPLASM OF 06/20/2018 KADEEM LAGUNAS MD Ot D12.3 BENIGN NEOPLASM OF TRANSVERSE COLON 06/20/2018 KADEEM LAGUNAS MD Ot I10 ESSENTIAL (PRIMARY) HYPERTENSION 06/20/2018 KADEEM LAGUNAS MD Ot K57.30 DVRTCLOS OF LG INT W/O PERFORATION OR AB 06/20/2018 KADEEM LAGUNAS MD Ot K63.5 POLYP OF COLON 06/20/2018 KADEEM LAGUNAS MD Ot N40.0 BENIGN PROSTATIC HYPERPLASIA WITHOUT LOW 06/20/2018 KADEEM LAGUNAS MD Ot Z12.11 ENCOUNTER FOR SCREENING FOR MALIGNANT NE 06/20/2018 KADEEM LAGUNAS MD Ot 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 06/20/2018 KADEEM LAGUNAS MD Ot Z80.0 FAMILY HISTORY OF MALIGNANT NEOPLASM OF 06/22/2018 KADEEM LAGUNAS MD Ot D12.3 BENIGN NEOPLASM OF TRANSVERSE COLON 06/22/2018 KADEEM LAGUNAS MD Ot I10 ESSENTIAL (PRIMARY) HYPERTENSION 06/22/2018 KADEEM LAGUNAS MD Ot K57.30 DVRTCLOS OF LG INT W/O PERFORATION OR AB 06/22/2018 KADEEM LAGUNAS MD Ot K63.5 POLYP OF COLON 06/22/2018 KADEEM LAGUNAS MD Ot N40.0 BENIGN PROSTATIC HYPERPLASIA WITHOUT LOW 06/22/2018 KADEEM LAGUNAS MD Ot Z12.11 ENCOUNTER FOR SCREENING FOR MALIGNANT NE 06/22/2018 KADEEM LAGUNAS MD Ot Z79.899 OTHER [facility] (CURRENT) DRUG THERAPY 06/22/2018 KADEEM LAGUNAS MD Ot Z80.0 FAMILY HISTORY OF MALIGNANT NEOPLASM OF 09/14/2018 BOBBY STOUT Ot C44.320 SQUAMOUS CELL CARCINOMA OF SKIN OF UNSPE 09/14/2018 ALONSO SALAZAR, WHITNEY Young Ot C44.320 SQUAMOUS CELL CARCINOMA OF SKIN OF UNSPE 09/14/2018 ALONSO SALAZAR, WHITNEY Young Ot C44.329 SQUAMOUS CELL CARCINOMA OF SKIN OF OTHER 11/09/2018 KADEEM LAGUNAS MD Ot R10.32 LEFT LOWER QUADRANT PAIN 11/09/2018 KADEEM LAGUNAS MD Ot R19.7 DIARRHEA, UNSPECIFIED 11/27/2018 KADEEM LAGUNAS MD Ot R10.32 LEFT LOWER QUADRANT PAIN 11/27/2018 BEBO SALAZAR, KADEEM Ocampo Ot R19.7 DIARRHEA, UNSPECIFIED 03/06/2019 ALONSO SALAZAR, WHITNEY E Ot C44.329 SQUAMOUS CELL CARCINOMA OF SKIN OF OTHER 03/06/2019 VIKTORIYA SALAZAR, ADRI Hoffmann Ot Z01.818 ENCOUNTER FOR OTHER PREPROCEDURAL EXAMIN Procedures Code Description Performed By Performed On 56.0 TU REMOV URETER OBSTRUCT 11/30/2012 Results Test Result Range Complete blood count (CBC) with automated white blood cell (WBC) differential - 11/07/18 10:59 Blood leukocytes automated count (number/volume) 6.8 10*3/uL 4.3-11.0 Blood erythrocytes automated count (number/volume) 4.68 10*6/uL 4.35-5.85 Venous blood hemoglobin measurement (mass/volume) 15.2 g/dL 13.3-17.7 Blood hematocrit (volume fraction) 44 % 40-54 Automated erythrocyte mean corpuscular volume 95 [foz_us] 80-99 Automated erythrocyte mean corpuscular hemoglobin (mass per erythrocyte) 33 pg 25-34 Automated erythrocyte mean corpuscular hemoglobin concentration measurement (mass/volume) 34 g/dL 32-36 Automated erythrocyte distribution width ratio 13.5 % 10.0- 14.5 Automated blood platelet count (count/volume) 223 10*3/uL 130-400 Automated blood platelet mean volume measurement 11.6 [foz_us] 7.4-10.4 Automated blood neutrophils/100 leukocytes 69 % 42-75 Automated blood lymphocytes/100 leukocytes 19 % 12-44 Blood monocytes/100 leukocytes 10 % 0-12 Automated blood eosinophils/100 leukocytes 3 % 0-10 Automated blood basophils/100 leukocytes 0 % 0-10 Blood neutrophils automated count (number/volume) 4.6 10*3 1.8-7.8 Blood lymphocytes automated count (number/volume) 1.3 10*3 1.0-4.0 Blood monocytes automated count (number/volume) 0.7 10*3 0.0- 1.0 Automated eosinophil count 0.2 10*3/uL 0.0-0.3 Automated blood basophil count (count/volume) 0.0 10*3/uL 0.0-0.1 Erythrocyte sedimentation rate by westergren method - 11/07/18 10:59 Erythrocyte sedimentation rate by westergren method 5 mm 0- 30 C DIFFICILE AG + TOXIN A/B. - 11/07/18 12:34 RESULTS NEGATIVE FOR ANTIGEN AND TOXIN A/B NRG Encounters ACCT No. Visit Date/Time Discharge Status Pt. Type Provider Facility Loc./Unit Complaint [id number] 03/06/2019 05:36:00 03/06/2019 13:09:00 DIS Outpatient ADRI SADLER MD [facility] PREOP YAG [id number] 11/07/2018 10:49:00 11/07/2018 23:59:59 CLS Outpatient KADEEM LAGUNAS MD [facility] LAB DIARRHEA,LLQ ABD PAIN [id number] 06/15/2018 07:38:00 06/15/2018 09:55:00 DIS Outpatient KADEEM LAGUNAS MD [facility] ENDO SCREENING, FAMILY HX COLON CANCER [id number] 06/12/2018 06:40:00 06/12/2018 15:47:00 DIS Outpatient KADEEM LAGUNAS MD [facility] PREOP COLONOSCOPY [id number] 01/12/2018 00:08:00 01/12/2018 23:59:59 CLS Preadmit WHITNEY GUPTA MD [facility] ONC [id number] 10/13/2017 09:32:00 01/11/2018 00:01:00 DIS Outpatient WHITNEY GUPTA MD [facility] ONC [id number] 04/12/2017 15:11:00 05/27/2017 00:01:00 DIS Outpatient WHITNEY GUPTA MD [facility] ONC [id number] 01/11/2017 15:29:00 01/11/2017 23:59:59 CLS Outpatient WHITNEY GUPTA MD [facility] ONC [id number] 10/12/2016 15:16:00 10/12/2016 23:59:59 CLS Outpatient BOBBY STOUT [facility] ONC [id number] 07/12/2016 14:55:00 08/28/2016 00:01:00 DIS Outpatient BOBBY STOUT [facility] ONC [id number] 05/26/2016 15:41:00 05/30/2016 09:26:00 DIS Outpatient BOBBY STOUT [facility] ONC [id number] 02/18/2016 10:59:00 02/18/2016 17:40:00 DIS Outpatient NIRAV DOWLING MD [facility] RT LATTER DAY LESION,LT BELOW EAR LESION [id number] 02/17/2016 14:08:00 02/17/2016 14:41:00 DIS Outpatient NIRAV DOWLING MD [facility] PREOP RT LATTER DAY LESION,LEFT BELOW EAR LESION [id number] 05/12/2014 12:22:00 05/12/2014 23:59:59 CLS Outpatient LILIANE SALAZAR, THANG Ro [facility] RAD COUGH/SPUTUM [id number] 01/04/2013 07:30:00 01/04/2013 10:45:00 DIS Outpatient BEBO SALAZAR, KADEEM Ocampo [facility] SCREENING,DIVERTICULOSIS [id number] 01/02/2013 08:29:00 01/02/2013 23:59:59 CLS Outpatient KADEEM LAGUNAS MD [facility] PREOP SCREENING [id number] 03/08/2019 09:00:00 ADRI Woodard MD [facility] YAG [id number] 11/29/2012 12:05:00 Document Registration
== END 2019-03-08 08:00 | disposition home or self-care (01) ==
LOC: SDC 06:43
PROVIDERS: ATTEND Specialist
DX: H26.491 Other secondary cataract, right eye (principal); I10 Essential (primary) hypertension; F17.210 Nicotine dependence, cigarettes, uncomplicated; Z88.0 Allergy status to penicillin; Z80.0 Family history of malignant neoplasm of digestive organs; Z80.1 Family history of malignant neoplasm of trachea, bronchus and lung

== ENCOUNTER → 2019-12-10 | Outpatient (CLI) | payer MEDICARE, OTHER ==
[~2019-12-10] MED LIST changes: +HOLD METFORMIN - RECEIVED CONTRAST 20 ML VIAL IV SCH; +IOHEXOL 350 MG/ML 100 ML (OMNIPAQUE 350) VIAL IV ONE; +NS 100 ML (IVPB) BAG IV ONE; -PENT400T9 PO; +PNT400TCR PO; -TAMS0.4C98 PO
--- NOTE | 2019-12-10 10:52 | Diagnostic Imaging Report ---
PROCEDURE: CT abdomen and pelvis with contrast. TECHNIQUE: Multiple contiguous axial images were obtained through the abdomen and pelvis after administration of intravenous contrast. Auto Exposure Controls were utilized during the CT exam to meet ALARA standards for radiation dose reduction. INDICATION: Pain at beltline for one month and history of diverticulitis. COMPARISON: Comparison is made with prior examination 11/29/2012. FINDINGS: There is mild cardiomegaly. There are some dependent atelectasis in the lung bases. Liver is normal in size without focal lesions. Gallbladder is unremarkable. There is no biliary ductal dilatation. Spleen is normal. Pancreas and adrenal glands are unremarkable. There is a cyst in the right kidney. Left kidney is normal. Aorta is nonaneurysmal. Bowel gas pattern is nonspecific. There is no free air. There is no ascites. There are no focal inflammatory changes. There is some diverticular disease without evidence of diverticulitis. Bladder is normal. There is no pelvic mass, adenopathy or free fluid. There are minimal degenerative changes in the lumbar spine. IMPRESSION: Diverticular disease without evidence of diverticulitis. Right renal cyst. No other acute abnormality in the abdomen or pelvis. Dictated by: Dictated on workstation # [id number]
== END ==
LOC: RAD 09:14
PROVIDERS: ATTEND Internal Medicine
DX: R10.32 Left lower quadrant pain (principal); R63.4 Abnormal weight loss; K57.90 Diverticulosis of intestine, part unspecified, without perforation or abscess without bleeding; N28.1 Cyst of kidney, acquired
CPT/HCPCS: 74177

== ENCOUNTER 2021-06-23 09:54 | Outpatient (CLI) | payer MEDICARE, OTHER ==
[~2021-06-23] VITALS: Ht 177.8 cm; Wt 67.8 kg
[~2021-06-23 09:54] MED LIST changes: -HOLD METFORMIN - RECEIVED CONTRAST 20 ML VIAL IV SCH; -IOHEXOL 350 MG/ML 100 ML (OMNIPAQUE 350) VIAL IV ONE; -LISI-556 PO; +LISI-729 PO; -NS 100 ML (IVPB) BAG IV ONE
== END 2021-06-23 12:22 | disposition home or self-care (01) ==
LOC: PREOP 09:54
PROVIDERS: ATTEND Internal Medicine
DX: Z01.818 Encounter for other preprocedural examination (principal)

== ENCOUNTER 2021-06-25 10:16 | Day surgery (SDC) | payer MEDICARE, OTHER ==
--- NOTE | 2021-06-24 06:40 | HISTORY AND PHYSICAL ---
DATE OF SERVICE: COLONOSCOPY HISTORY AND PHYSICAL DATE OF ADMISSION: HISTORY OF PRESENT ILLNESS: The patient is a 70-year-old white male, who presented to the office reporting increasing left lower quadrant abdominal pain. It is improved by the passage of gas, crampy in nature. It has been intermittent, but getting worse over the past several months. He has had no night sweats, chills or fever and has noted no blood in the stool. He accomplished colonoscopy three years ago, did have two tubular adenomas removed, one from the mid transverse colon and one from the mid sigmoid colon. He had moderate diverticular disease. His weight was down 6.8 pounds, but he attributes this to the summertime and this is compared to his last office weight six months ago. He is not aware of any family history for colon cancer. PHYSICAL EXAMINATION: GENERAL: Reveals a normal white male, little anxious, but not in acute distress. VITAL SIGNS: Blood pressure 110/80. CHEST: Clear. CARDIOVASCULAR: Reveals a regular rate and rhythm without murmur, S3 or S4. ABDOMEN: Soft and supple without organomegaly. He does have left lower quadrant mass, slightly tender to palpation. No other areas of abdominal tenderness or mass were noted. ASSESSMENT AND PLAN: For further evaluation of left lower quadrant abdominal mass with pain, the patient is being set up for a colonoscopy. We reviewed CT scan done in November of 2019 that did not reveal anything other than mild to moderate diverticular disease without evidence for diverticulitis in the sigmoid colon. Prep instructions with a Suprep kit were given and questions were answered. Job ID: [id number] DocumentID: [id number] Dictated Date: 06/03/2021 17:20:46 Senior Copywriter Date: 06/03/2021 17:30:35 Dictated By: KADEEM LAGUNAS MD
[~2021-06-25] VITALS: Ht 177.8 cm; Wt 67.8 kg
[2021-06-25] MEDS ORDERED: LACTATED RINGERS 1,000 ML IV ONE (10:25)
[2021-06-25] MEDS ORDERED: LIDOCAINE JELLY 2% 6 ML SYRINGE MM PRN (10:30)
[2021-06-25] MEDS ORDERED: LACTATED RINGERS 1,000 ML IV STA (10:30)
[2021-06-25 10:43] VITALS: BP 121/81
[2021-06-25] MEDS ORDERED: PROPOFOL INJECTION 50 ML IV ONE (12:34)
[2021-06-25 13:02] VITALS: BP 95/50
[2021-06-25 13:05] VITALS: BP 105/67
--- NOTE | 2021-06-25 13:09 | Pre-Op Note & Conscious Sedat ---
Pre-Operative Progress Note H&P Reviewed The H&P was reviewed, patient examined and no changes noted. Date H&P Reviewed: Jun 25, 2021 Time H&P Reviewed: 12:10 Conscious Sedation Pre-Proced ASA Score 2 For ASA 3 and 4: Consider anesthesia and medical clearance. Also, for patients with a history of failed moderate sedation consider anesthesia. Airway Lungs Heart ASA score ASA 1: a normal healthy patient ASA 2: a patient with a mild systemic disease (mid diabetes, controlled hypertension, obesity ASA 3: a patient with a severe systemic disease that limits activity (angina, COPD, prior Myocardial infarction) ASA 4: a patient with an incapacitating disease that is a constant threat to life (CHF, renal failure) ASA 5: a moribund patient not expected to survive 24 hrs. (ruptured aneurysm) ASA 6: a declared brain- patient whose organs are being harvested. For emergent operations, add the letter E after the classification Mallampati Classification Grade 2 Sedation Plan Analgesia, Amnesia, Plan communicated to team members, Discussed options with patient/fam, Discussed risks with patient/fam The patient is an appropriate candidate to undergo the planned procedure, sedation, and anesthesia. The patient immediately re-assessed prior to indication. KADEEM LAGUNAS MD Jun 25, 2021 13:09
[2021-06-25 13:10] VITALS: BP 107/57
[2021-06-25 13:20] VITALS: BP 107/57
--- NOTE | 2021-06-25 13:36 | Anesthesia-General Post-Op ---
MAC Patient Condition Mental Status/LOC: Same as Preop Cardiovascular: Satisfactory Nausea/Vomiting: Absent Respiratory: Satisfactory Pain: Controlled Complications: Absent Post Op Complications Complications None Follow Up Care/Instructions Patient Instructions None needed. Anesthesiology Discharge Order Discharge Order Patient is doing well, no complaints, stable vital signs, no apparent adverse anesthesia problems. No complications reported per nursing. GERMANIA ENGLE CRNA Jun 25, 2021 13:36
[2021-06-25 13:40] VITALS: BP 114/76
--- NOTE | 2021-06-25 18:44 | OPERATIVE REPORT ---
DATE OF SERVICE: COLONOSCOPY SUMMARY INDICATION FOR THE PROCEDURE: Left lower quadrant abdominal pain with history of polyps. I am is his primary care provider. DESCRIPTION OF PROCEDURE: The patient was placed in the left lateral decubitus position. Prior to undergoing colonoscopy, digital rectal evaluation was performed. Anal sphincter tone was normal and the perianal reflexes intact. The prostate was normal in size, anodular, nontender to digital inspection. No abnormalities were noted on digital inspection of anal canal and distal rectal vault. Colonoscope was then inserted into the rectum and under direct visualization advanced to cecum. The cecum was identified by identification of ileocecal valve and cecal strap. Quality of prep was fair. FINDINGS: There was no evidence for internal or external hemorrhoids and the rectum was unremarkable. A moderate number of medium to large size sigmoid, descending colon, and transverse colonic diverticulum were noted without evidence for diverticulitis. One 5 mm adenomatous appearing polyp was noted at the rectosigmoid junction, it was biopsied and ablated and submitted for histopathology. A similar size and appearing polyp was noted in the mid transverse colon. It too was biopsied and ablated with no subsequent blood loss. The hepatic flexure, ascending colon and cecum was unremarkable. ASSESSMENT: Two 5 to 6 mm sessile adenomatous appearing polyps were removed today, one from the rectosigmoid junction and one from the transverse colon under prep instructions that were suboptimal. As long as there are no surprise on histopathology report, we would likely be advocating repeat surveillance colonoscopy in 3 years considering prep conditions. The patient does have moderate diverticular disease involving the sigmoid colon, descending colon, transverse colon without evidence for acute diverticulitis. Job ID: [id number] DocumentID: [id number] Dictated Date: 06/25/2021 13:14:54 Drill Punch Operator Date: 06/25/2021 18:43:36 Dictated By: KADEEM LAGUNAS MD
== END 2021-06-25 13:45 | disposition home or self-care (01) ==
LOC: ENDO 10:16
PROVIDERS: ATTEND Internal Medicine
DX: D12.8 Benign neoplasm of rectum (principal); D12.3 Benign neoplasm of transverse colon; K57.30 Diverticulosis of large intestine without perforation or abscess without bleeding; R10.32 Left lower quadrant pain; I10 Essential (primary) hypertension; F17.210 Nicotine dependence, cigarettes, uncomplicated; Z79.899 Other long term (current) drug therapy

== ENCOUNTER → 2022-10-17 | Outpatient (CLI) | payer MEDICARE, OTHER ==
[~2022-10-17] MED LIST changes: -LISI-729 PO; +LISI5TAB20 PO
--- NOTE | 2022-10-17 11:41 | Diagnostic Imaging Report ---
INDICATION: COUGH, SOA COMPARISON: 05/12/2014 FINDINGS: Frontal and lateral views of the chest demonstrate normal heart size and pulmonary vascularity. Evaluation of lung young demonstrates minimal opacification posteriorly, only visualized in the lateral view. Right versus left is indeterminate. There is no large effusion or pneumothorax. Osseous structures show no gross acute abnormalities. IMPRESSION: 1. Probable posterior basilar atelectasis. Dictated by: Dictated on workstation # [id number]
== END ==
LOC: RAD 10:20
PROVIDERS: ATTEND Nurse Practitioner Family
DX: R05.9 Cough, unspecified (principal); R06.02 Shortness of breath
CPT/HCPCS: 71046

== ENCOUNTER → 2023-06-14 | Outpatient (CLI) | payer MEDICARE | LOC: RT 09:15 | PROVIDERS: ATTEND Internal Medicine | DX: R05.9 Cough, unspecified (principal); Z72.0 Tobacco use | CPT/HCPCS: 94060; 94726; 94729 ==